=== PATIENT | male | born 1990 | race Caucasian/White ===

== ENCOUNTER 2024-12-24 20:28 | Emergency (ER) | payer OTHER, SELFPAY ==
[2024-12-24 20:34] VITALS: BP 160/107; PULSE 88; RESP 16; TEMP 37.3; O2SAT 98; BMI 26.9
--- NOTE | 2024-12-24 20:46 | ED_ITS ---
HPI - General Adult General Date Seen: 12/24/24 Chief complaint: Dental/Oral/Mouth Injury/Pain Stated complaint: tooth pain Time Seen by Provider: 12/24/24 20:33 History of Present Illness HPI narrative: Patient is a 34-year-old generally healthy young man here for evaluation of tooth pain. He says he has a tooth that he knows needs a root canal, was trying to wait till the end of the year to get that done. Pain ramped up this past couple of days, he was seen at [facility] earlier today and prescribed prednisone and cephalexin, he took 1st doses of that a few hours ago but says that the pain is worse. No facial swelling or fever. No allergies. Related Data Home Medications ?Medication ?Instructions ?Recorded ?Confirmed venlafaxine PO 12/24/24 Allergies Allergy/AdvReac Type Severity Reaction Status Date / Time No Known Drug Allergies Allergy Verified 12/24/24 20:36 PFSH PFSH Social History Smoking Status: Never smoker How often do you have a drink containing alcohol: never AUDIT-C Alcohol total score: 0 Non-prescribed substance use: denies use Exam Narrative: Exam Narrative: Vital signs reviewed In general, alert, nontoxic young man. ENT: Dentition is generally intact. He has pain in the 1 of his lower left molars, but there is no surrounding edema or fluctuance. No obvious caries. Const: Vital Signs, click to edit/add: Vital Signs - 24 hr 12/24/24 20:34 Temperature 99.1 F Pulse Rate [Pulse Oximeter] 88 Respiratory Rate 16 Blood Pressure [Ri ght Upper Arm] 160/107 H Pulse Oximetry 98 Oxygen Delivery Me thod Room Air Course Course ED Course: Discussed that I am not able to prescribe narcotics from the ER for dental pain, but I did give him a dose of oxycodone 5 mg here. Hopefully by tomorrow the prednisone and amoxicillin will have helped and his pain will be diminished. Otherwise, ibuprofen and Tylenol recommended, ice, senior technical recruiter follow-up as planned. Return for new symptoms such as fever or facial swelling. Vital Signs Vital signs: Initial Vital Signs Temperature 99.1 F 12/24/24 20:34 Temperature Source Temporal Artery Scan 12/24/24 20:34 Pulse Rate 88 12/24/24 20:34 Respiratory Rate 16 12/24/24 20:34 Blood Pressure 160/107 H 12/24/24 20:34 Blood Pressure Mean 124 H 12/24/24 20:34 Blood Pressure Position Sitting 12/24/24 20:34 Pulse Oximetry 98 12/24/24 20:34 Oxygen Delivery Method Room Air 12/24/24 20:34 Vital Signs Temperature 99.1 F 12/24/24 20:34 Pulse Rate 88 12/24/24 20:34 Respiratory Rate 16 12/24/24 20:34 Blood Pressure 160/107 H 12/24/24 20:34 Pulse Oximetry 98 12/24/24 20:34 Oxygen Delivery Method Room Air 12/24/24 20:34 Temperature 99.1 F 12/24/24 20:34 Pulse Rate 88 12/24/24 20:34 Respiratory Rate 16 12/24/24 20:34 Blood Pressure 160/107 H 12/24/24 20:34 Pulse Oximetry 98 12/24/24 20:34 Oxygen Delivery Method Room Air 12/24/24 20:34 Discharge Plan Discharge Clinical Impression: Toothache Patient Disposition: Home, Self-Care Condition: Stable Instructions: Toothache (ED) Additional Instructions: Follow-up with senior technical recruiter as planned. Take the previously prescribed antib iotic and prednisone. Ibuprofen 400 mg plus Tylenol 1000 mg 3 times daily with food. For facial swelling or fever, return to the ER. Prescriptions: No Action venlafaxine PO Stand Alone Forms: [facility] Info Inst[facility]
[2024-12-24 21:08] VITALS: BP 152/94; PULSE 84; RESP 16; TEMP 37.3; O2SAT 98
--- OUTSIDE RECORDS SUMMARY | 2024-12-24 21:16 | XMS_ITS | Clinical Summary ---
Author Organization [facility] Address [address] [place] [id number] Care Team Providers Care Getter Welder Name Role Phone Clinic, No Pcp Or Primary Care Provider Unavaila ble Encounters Date Type Department Care Team Description 10/29/2024 3:30 PM CDT Ancillary Procedure [facility] [address] [facility] [address] [place] [address] 10/29/2024 Travel 10/25/2024 Transcribe Orders [facility] [place] [phone] Franko Fuchs NP from Last 3 Months Social History Tobacco Use Types Packs/Day Years Used Date Smoking Tobacco: Never Assessed Sex and Gender Information Value Date Recorded Sex Assigned at Not on file Legal Sex Male 11:51 AM CDT Gender Identity Not on file Sexual Orientation Not on file Plan of Treatment Not on file Procedures Procedure Name Priority Date/Time Associated Diagnosis Comments MR SHOULDER RIGHT WWO Routine 10/29/2024 4:26 PM CDT Supraspinatus syndrome of left shoulder from Last 3 Months Results * MR SHOULDER RIGHT WWO (10/29/2024 4:26 PM CDT) Anatomical Region Laterality Modality SHOULDER R Magnetic Resonan ce 11/02/2024 11:2 5 AM CDT Impressions 11/02/2024 11:25 AM CDT 1. Unusual mixed cystic/solid 4 centimeter process along the anterior to anterior inferior aspect of the supraspinatus muscle centered at the glenohumeral joint level, superior to the long head of the biceps tendon and abutting the inferior aspect of the coracoacromial ligament. There is internal enhancement along the medial aspect of the process. Considerations may include atypical ganglion or cyst (with enhancing granulation tissue or synovitis) versus mixed cystic - solid tumor. 2. Mild distal supraspinatus tendinosis without tendon tear. 3. Minor synovitis within the subscapular recess of the glenohumeral joint with the joint space otherwise maintained. 4. Mild right AC joint arthrosis. Dictated by Royal Carmen MD @ 11/02/2024 5:03:15 AM (Electronically Signed) Narrative 11/02/2024 11:25 AM CDT For Patients: As a result of the Century Cures Act, medical imaging exams and procedure reports are released immediately into your electronic medical record. You may view this report before your referring provider. If you have questions, please contact your health care provider. CLINICAL INDICATION: Supraspinatus syndrome of shoulder. COMPARISON IMAGING STUDIES: None available at time of interpretation. TECHNICAL: Non-contrast and noncontrast enhanced MRI of the right shoulder. Axial, sagittal oblique and coronal oblique T1, PD, PD FS, T2, T2 FS, stir and postcontrast T1 weighted images. 1.5 Dyana MR scanner. 18 mL clariscan intravenous gadolinium was administered for the postcontrast portion of the study. FINDINGS: GLENOHUMERAL JOINT: Effusion/Joint Space: No effusion. Mild synovitis within the subscapular recess region on the postcontrast images. Humeral Head Articular Cartilage: Maintained. Glenoid Articular Cartilage: Maintained. Alignment: Maintained. Capsule: No generalized capsular edema or capsular thickening. OSSEOUS STRUCTURES: No fracture or avascular necrosis. Small focus of reactive cortical cystic-like change involves the posterior greater tuberosity-humeral head junction. CORACOACROMIAL ARCH: Acromial Morphology: Acromial morphology is intermediate between type 1 and type 2. Mild lateral downward sloping of the acromion. No os acromiale. No significant subacromial spur. Lateral acromial thickness is 9 mm. Acromiohumeral Interval: At its narrowest, the interval measures 8 mm. Coracohumeral Interval: At its narrowest, the coracohumeral interval measures 8 mm. Coracoid index is 18 mm. ACROMIOCLAVICULAR JOINT REGION: Mild AC joint arthrosis. Coracoclavicular ligament intact. BURSAE: No bursal fluid collection. ROTATOR CUFF TENDONS AND MUSCLES AND DELTOID: Supraspinatus and Infraspinatus: There is a mixed cystic solid process present along the anterior to anterior inferior aspect of the supraspinatus muscle centered at the glenohumeral joint level. This is present along the superior aspect of the proximal intra-articular long head of the biceps tendon and abuts the inferior aspect of the coracoacromial ligament. Process measures 4 x 2.5 x 1 centimeter in extent and is well seen on coronal oblique PD fat-sat image number 19 of series 8. There is scalloping of the supraspinatus muscle belly. Following contrast administration, there is enhancement along its medial aspect as seen on coronal oblique T1 fat- sat image number 18 of series 13. Mild tendinosis of the distal supraspinatus tendon. No significant distal tendon tear. No muscle atrophy. Distal infraspinatus tendon is intact. No infraspinatus muscle atrophy. Teres Minor: No tendinosis, tendon tearing, muscle atrophy or muscle edema. Subscapularis: No tendinosis, tendon tearing, muscle atrophy or muscle edema. Deltoid: No muscle atrophy or edema. BICEPS TENDON, LONG HEAD: No tear of the long head of the biceps tendon. No subluxation of tendon from bicipital groove. GLENOID LABRUM: Intact. OTHER FINDINGS: There is no abnormality within the suprascapular or spinoglenoid notches nor within the quadrilateral space. Procedure Note Royal Carmen MD - 11/02/2024 For Patients: As a result of the 21st Century Cures Act, medical imagingexams and procedure reports are released immediately into your electronicmedical record. You may view this report before your referring provider.If you have questions, please contact your health care provider. CLINICAL INDICATION: Supraspinatus syndrome of shoulder. COMPARISON IMAGING STUDIES: None available at time of interpretation. TECHNICAL: Non-contrast and noncontrast enhanced MRI of the right shoulder. Axial,sagittal oblique and coronal oblique T1, PD, PD FS, T2, T2 FS, stir andpostcontrast T1 weighted images. 1.5 Dyana MR scanner. 18 mL clariscanintravenous gadolinium was administered for the postcontrast portion ofthe study. FINDINGS: GLENOHUMERAL JOINT: Effusion/Joint Space: No effusion. Mild synovitis within the subscapularrecess region on the postcontrast images. Humeral Head Articular Cartilage: Maintained. Glenoid Articular Cartilage: Maintained. Alignment: Maintained. Capsule: No generalized capsular edema or capsular thickening. OSSEOUS STRUCTURES: No fracture or avascular necrosis. Small focus of reactive corticalcystic-like change involves the posterior greater tuberosity-humeral headjunction. CORACOACROMIAL ARCH: Acromial Morphology: Acromial morphology is intermediate between type 1and type 2. Mild lateral downward sloping of the acromion. No osacromiale. No significant subacromial spur. Lateral acromial thicknessis 9 mm. Acromiohumeral Interval: At its narrowest, the interval measures 8 mm. Coracohumeral Interval: At its narrowest, the coracohumeral intervalmeasures 8 mm. Coracoid index is 18 mm. ACROMIOCLAVICULAR JOINT REGION: Mild AC joint arthrosis. Coracoclavicular ligament intact. BURSAE: No bursal fluid collection. ROTATOR CUFF TENDONS AND MUSCLES AND DELTOID: Supraspinatus and Infraspinatus: There is a mixed cystic solid processpresent along the anterior to anterior inferior aspect of thesupraspinatus muscle centered at the glenohumeral joint level. This ispresent along the superior aspect of the proximal intra-articular longhead of the biceps tendon and abuts the inferior aspect of thecoracoacromial ligament. Process measures 4 x 2.5 x 1 centimeter in extentand is well seen on coronal oblique PD fat-sat image number 19 of series8. There is scalloping of the supraspinatus muscle belly. Followingcontrast administration, there is enhancement along its medial aspect asseen on coronal oblique T1 fat-sat image number 18 of series 13. Mildtendinosis of the distal supraspinatus tendon. No significant distaltendon tear. No muscle atrophy. Distal infraspinatus tendon is intact. Noinfraspinatus muscle atrophy. Teres Minor: No tendinosis, tendon tearing, muscle atrophy or muscleedema. Subscapularis: No tendinosis, tendon tearing, muscle atrophy or muscleedema. Deltoid: No muscle atrophy or edema. BICEPS TENDON, LONG HEAD: No tear of the long head of the biceps tendon. No subluxation of tendonfrom bicipital groove. GLENOID LABRUM: Intact. OTHER FINDINGS: There is no abnormality within the suprascapular or spinoglenoid notchesnor within the quadrilateral space. IMPRESSION: 1. Unusual mixed cystic/solid 4 centimeter process along the anterior toanterior inferior aspect of the supraspinatus muscle centered at theglenohumeral joint level, superior to the long head of the biceps tendonand abutting the inferior aspect of the coracoacromial ligament. There isinternal enhancement along the medial aspect of the process.Considerations may include atypical ganglion or cyst (with enhancinggranulation tissue or synovitis) versus mixed cystic - solid tumor. 2. Mild distal supraspinatus tendinosis without tendon tear. 3. Minor synovitis within the subscapular recess of the glenohumeral jointwith the joint space otherwise maintained. 4. Mild right AC joint arthrosis. Dictated by Royal Carmen MD @ 11/02/2024 5:03:15 AM (Electronically Signed) Franko Fuchs NP MR Final Result from Last 3 Months Insurance [address] [place] [id number] [facility] [employer] [place] [id number] [facility] Care Teams Getter Welder Relationship Specialty Start Date End Date Clinic, No Pcp Or . PCP - General 10/25/24
--- OUTSIDE RECORDS SUMMARY | 2024-12-24 21:16 | XMS_ITS | Clinical Summary ---
Author Organization [facility] Address [address] [address] Care Team Providers Care Quiller Tender Name Role Phone Unavailable Primary Care Provider Unavailabl e Source Comments You are receiving this document as you are listed as the primary care provider,follow-up provider, or the patient has been referred to you for consultation.This is in compliance with the Medicare andMedicaid EHR Incentive Program,which states Providers who transition their patient to another setting of careor provider of care or refers their patient to another provider of care shouldprovide summary care record for each transition of care or referral. [facility] Allergies No known active allergies Medications venlafaxine (EFFEXORXR) 150 MG 24 hour release capsule Take 1 Capsule (150 mg) by mouth daily. Active gabapentin (NEURONTIN) 100 MG capsule Take 3 Capsules (300 mg) by mouth three times a day. Active lisinopril (ZESTRIL) 5 MG tablet Take 1 Tablet (5 mg) by mouth daily. Active propranolol (INDERALLA) 60 MG 24 hour release capsule Take 1 Capsule (60 mg) by mouth daily. Active amoxicillin (AMOXIL) 500 MG capsule Take 1 Capsule (500 mg) by mouth three times a day. 30 Capsule 10/11/2024 Active Active Problems No known active problems Encounters Date Type Department Care Team Description 10/11/2024 10:40 AM CDT Office Visit [facility] [address] [id number] Dana Saldana DDS Dental Exam (Pain lower left since Friday ) 10/11/2024 Telephone [facility] Unassigned, Provider Problem Focused Exam from Last 3 Months Social History Tobacco Use Types Packs/Day Years Used Date Smoking Tobacco: Former Cigarettes Q uit: 08/2018 Tobacco Cessation:Counseling Given: Not Answered Sex and Gender Information Value Date Recorded Sex Assigned at Not on file Legal Sex Male 9:36 AM CDT Gender Identity Not on file Sexual Orientation Not on file Plan of Treatment Upcoming Encounters Date Type Department Care Team (Late st Contact Info) Description 12/31/2024 9:00 AM CDT Appointment Endodontics at [facility] [address] [place] [address] Yuan Tapia, REGI, MS [address] [place] [address] Health Maintenance Due Date Last Done Comments Hep C Screening (Preventive Services) 1992 HIV Screening (Preventive Services) 2008 Adult Preventive Visit 2010 DTaP/Tdap/Td Vaccine (1 - Tdap) 09/01/2011 HepB Vaccine (1) 09/01/2011 HPV Vaccine (1 - 3-dose SCDM series) 09/01/2019 COVID-19 Vaccine (1 - 2023-2 5 season) 2024 Influenza Vaccine (#1) 2024 Zoster/Shingles Vaccine (1 of 2) 2042 HepA Vaccine Aged Out No longer eligi ble based on patient's age to complete this topic Hib Vaccine Aged Out No longer eligi ble based on patient's age to complete this topic IPV (Polio) Vaccine Aged Out No longe r eligible based on patient's age to complete this topic MCV4 Vaccine Aged Out No longer eligi ble based on patient's age to complete this topic Meningococcal B Vaccine Aged Out No l onger eligible based on patient's age to complete this topic Pneumococcal Vaccine Aged Out No long er eligible based on patient's age to complete this topic Procedures Procedure Name Priority Date/Time Associated Diagnosis Comments [id number] Routine 10/11/2024 10:40 AM CDT Toothache LIMITED ORAL EVALUATION Routine 10/12/19 10:40 AM CDT Toothache FILM-PERIAPICAL FIRST Routine 10/11/2024 10:40 AM CDT Toothache 19 MODL EXISTING COMPOSITE FILLING Routine 10/11/2024 12:00 AM CDT from Last 3 Months Insurance [address] [place] [id number] [facility]
== END 2024-12-24 21:17 | disposition home or self-care (01) ==
LOC: ED 21:14
PROVIDERS: Emergency Provider Emergency Medicine
DX: K08.89 Other specified disorders of teeth and supporting structures (principal)
CPT/HCPCS: 99283; A9270